=== PATIENT | male | born 1980 | race Caucasian/White ===

== ENCOUNTER 2016-07-01 14:27 | Emergency (ER) | payer MEDICAID ==
[~2016-07-01] VITALS: Ht 182.9 cm; Wt 187.7 kg
[~2016-07-01 14:27] MED LIST: ACET650S12 PR; CEPH-368 PO; GABA600T2 PO; GABA800T2 PO; LACT1CAP33 PO; LINE600T37 PO; OXYC20TA59 PO
[2016-07-01] MEDS ORDERED: GABAPENTIN 400 MG CAPSULE PO ONE (15:00)
[2016-07-01] MEDS ORDERED: DEXAMETHASONE 4 MG TABLET ONE (15:12)
[2016-07-01] MEDS ORDERED: DEXAMETHASONE 4 MG TABLET PO ONE (15:30)
[2016-07-01] MEDS ORDERED: HYDROmorphone 1 MG/ML, 1ML IM ONE (16:00)
[2016-07-01] MEDS ORDERED: HYDROmorphone 1 MG/ML, 1ML ONE (16:07)
[2016-07-01 17:02] VITALS: BP 118/74
== END 2016-07-01 17:05 | disposition home or self-care (01) ==
LOC: ED 15:09
DX: M54.16 Radiculopathy, lumbar region (principal); Z86.718 Personal history of other venous thrombosis and embolism
CPT/HCPCS: 93971; 96372; 99284; J1170

== ENCOUNTER 2017-03-20 10:32 | Emergency (ER) | payer MEDICAID ==
[~2017-03-20] VITALS: Ht 182.9 cm; Wt 182.2 kg
[~2017-03-20 10:32] MED LIST changes: +ACIDOPHILUS PROB1 MG PO; -LACT1CAP33 PO
[2017-03-20] MEDS ORDERED: SODIUM CHLORIDE FLUSH 10ML SYR IVF ONE (11:30)
[2017-03-20] MEDS ORDERED: ACETAMINOPHEN 325 MG TABLET PO ONE (11:30)
[2017-03-20] MEDS ORDERED: SODIUM CHLORIDE 0.9% 1,000ML IVBOLUS ONE (11:30)
[2017-03-20] MEDS ORDERED: ACETAMINOPHEN 325 MG TABLET ONE (11:44)
[2017-03-20 12:01] LABS: BASOPHILS # (AUTO) 0.02 x10^3/uL (0-0.1); BASOPHILS % (AUTO) 0 % (0-1); EOSINOPHILS # (AUTO) 0.01 x10^3/uL (0-0.4); EOSINOPHILS % (AUTO) 0 % (1-7); LYMPHOCYTES # (AUTO) 0.72 x10^3/uL (1-3.4); LYMPHOCYTES % (AUTO) 13 % (22-44); MD NO; MEAN CORPUSCULAR HEMOGLOBIN 27.7 pg (27.5-34.5); MEAN CORPUSCULAR HGB CONC 33.6 g/dL (33.2-36.2); MEAN CORPUSCULAR VOLUME 82.4 fL (81-97); MEAN PLATELET VOLUME 8.8 fL (7.4-10.4); MONOCYTES # (AUTO) 0.57 x10^3/uL (0.2-0.8); MONOCYTES % (AUTO) 10 % (2-9); NEUTROPHILS # (AUTO) 4.19 x10^3/uL (1.8-6.8); NEUTROPHILS % (AUTO) 76 % (42-75); PLATELET COUNT 164 x10^3/uL (130-400); RED BLOOD COUNT 5.24 x10^6/uL (4.38-5.82); RED CELL DISTRIBUTION WIDTH 16.9 % (9.4-14.8)
[2017-03-20 12:12] LABS: ALANINE AMINOTRANSFERASE 46 U/L (12-78); ANION GAP 8 mmol/L (5-15); CALCIUM 8.7 mg/dL (8.5-10.1); CHLORIDE 105 mmol/L (98-107); CREATININE 0.93 mg/dL (0.7-1.3)
[2017-03-20] MEDS ORDERED: ALBUTEROL/IPRATROPIUM 2.5MG/0.5MG, 3 ML ONE (12:12)
[2017-03-20 12:17] LABS: ALKALINE PHOSPHATASE 97 U/L (45-117); BILIRUBIN,TOTAL 0.3 mg/dL (0.2-1.0); TOTAL PROTEIN 7.7 g/dL (6.4-8.2); TROPONIN I < 0.015 ng/mL (0.000-0.045)
[2017-03-20] MEDS ORDERED: ALBUTEROL/IPRATROPIUM 2.5MG/0.5MG, 3 ML NPPB ONE (12:30)
[2017-03-20 13:28] LABS: MICROSCOPIC NOT IND
[2017-03-20 13:30] LABS: CULTURE INDICATED? NO
[2017-03-20] MEDS ORDERED: OMNIPAQUE 350 MG/ML, 150 ML BOTTLE ONE (15:09)
[2017-03-20] MEDS ORDERED: CEFTRIAXONE PMX 1GM/50ML 50 ML IVPB ONE (16:00)
[2017-03-20] MEDS ORDERED: CEFTRIAXONE PMX 1GM/50ML 50 ML ONE (16:04)
[2017-03-20 17:04] VITALS: BP 132/78
== END 2017-03-20 17:08 | disposition home or self-care (01) ==
LOC: ED 15:16
DX: J18.0 Bronchopneumonia, unspecified organism (principal)
CPT/HCPCS: 36415; 71045; 71275; 80053; 81003; 83605; 84145; 84484; 85025; 85379; 87040; 87081; 87880; 93005; 94640; 96361; 96365; 99285; J0696; J7030; Q9967; J7620

== ENCOUNTER 2017-03-29 09:33 | Inpatient (IN) | payer MEDICAID ==
[~2017-03-29] VITALS: Ht 182.9 cm; Wt 177.1 kg
[2017-03-29] MEDS ORDERED: MORPHINE SULFATE 4 MG/ML, 1ML ONE ×3 (10:26→15:58)
[2017-03-29] MEDS ORDERED: ONDANSETRON 2MG/ML, 2ML ONE (10:26)
[2017-03-29 10:28] LABS: BASOPHILS # (AUTO) 0.03 x10^3/uL (0-0.1); BASOPHILS % (AUTO) 0 % (0-1); EOSINOPHILS # (AUTO) 0.11 x10^3/uL (0-0.4); EOSINOPHILS % (AUTO) 1 % (1-7); LYMPHOCYTES # (AUTO) 2.27 x10^3/uL (1-3.4); LYMPHOCYTES % (AUTO) 29 % (22-44); MD NO; MEAN CORPUSCULAR HEMOGLOBIN 27.2 pg (27.5-34.5); MEAN CORPUSCULAR HGB CONC 32.9 g/dL (33.2-36.2); MEAN CORPUSCULAR VOLUME 82.8 fL (81-97); MEAN PLATELET VOLUME 8.2 fL (7.4-10.4); MONOCYTES # (AUTO) 0.63 x10^3/uL (0.2-0.8); MONOCYTES % (AUTO) 8 % (2-9); NEUTROPHILS # (AUTO) 4.92 x10^3/uL (1.8-6.8); NEUTROPHILS % (AUTO) 62 % (42-75); PLATELET COUNT 197 x10^3/uL (130-400); RED BLOOD COUNT 5.64 x10^6/uL (4.38-5.82); RED CELL DISTRIBUTION WIDTH 16.2 % (9.4-14.8)
[2017-03-29] MEDS ORDERED: ONDANSETRON 2MG/ML, 2ML IVPush ONE (10:30)
[2017-03-29] MEDS ORDERED: SODIUM CHLORIDE FLUSH 10ML SYR IVF ONE (10:30)
[2017-03-29 10:36] LABS: INTERNATIONAL NORMALIZED RATIO 0.96 (0.93-1.1)
[2017-03-29 10:38] LABS: ALBUMIN 4.1 g/dL (3.4-5.0); ANION GAP 7 mmol/L (5-15); CALCIUM 8.6 mg/dL (8.5-10.1); CHLORIDE 105 mmol/L (98-107)
[2017-03-29] MEDS: MORPHINE SULFATE 4 MG/ML, 1ML IVPush PRN ×2 (10:57→11:55)
[2017-03-29] MEDS ORDERED: Enoxaparin 1 mg/kg protocol SQ SCH (11:00)
[2017-03-29] MEDS ORDERED: ENOXAPARIN 100 MG/ML SQ ONE (11:00)
[2017-03-29] MEDS ORDERED: ENOXAPARIN 80 MG/0.8 ML SQ ONE (11:00)
[2017-03-29] MEDS ORDERED: SODIUM CHLORIDE FLUSH 10ML SYR IVF PRN (11:30)
[2017-03-29] MEDS ORDERED: ENOXAPARIN 80 MG/0.8 ML ONE (11:58)
[2017-03-29] MEDS ORDERED: PROMETHAZINE 25 MG/ML, 1ML IM PRN (14:00)
[2017-03-29] MEDS ORDERED: ACETAMINOPHEN 325 MG TABLET PO PRN (14:00)
[2017-03-29] MEDS ORDERED: BISACODYL 10 MG SUPP PR PRN (14:00)
[2017-03-29] MEDS ORDERED: ENALAPRILAT 1.25 MG/ML, 2ML IVPush PRN (14:00)
[2017-03-29] MEDS ORDERED: DOCUSATE 100 MG CAPSULE PO PRN (14:00)
[2017-03-29] MEDS ORDERED: ATOM40CA PO (15:41)
[2017-03-29] MEDS ORDERED: ENOXAPARIN 80 MG/0.8 ML SQ SCH ×2 (16:30)
[2017-03-29] MEDS: OXYcodone IR 5MG TABLET PO PRN (16:43)
[2017-03-29] MEDS ORDERED: morphine SULFATE 10 MG/ML, 1ML IVPush ONE (18:30)
[2017-03-29 18:54] VITALS: BP 151/74
[2017-03-29] MEDS: morphine SULFATE 10 MG/ML, 1ML IVPush PRN (23:42)
[2017-03-30 00:45] VITALS: BP 159/74
[2017-03-30] MEDS: ENOXAPARIN 100 MG/ML SQ SCH ×2 (00:51→14:44)
[2017-03-30] MEDS: ENOXAPARIN 80 MG/0.8 ML SQ SCH ×2 (00:51→14:44)
[2017-03-30] MEDS: OXYcodone IR 5MG TABLET PO PRN ×3 (00:52→17:41)
[2017-03-30] MEDS: morphine SULFATE 10 MG/ML, 1ML IVPush PRN ×2 (05:46→11:52)
[2017-03-30 05:54] LABS: PROTHROMBIN TIME 10.4 Seconds (9.6-11.5)
[2017-03-30 07:26] VITALS: BP 111/72
[2017-03-30] MEDS: ATOMOXETINE 40 MG HOMEMEDPO SCH ×2 (08:00→14:00)
[2017-03-30] MEDS: SENNA/DOCUSATE TABLET PO SCH (09:00)
[2017-03-30] MEDS: ARIPIPRAZOLE 10 MG TABLET PO SCH (09:00)
[2017-03-30] MEDS: PAROXETINE 20 MG TABLET PO SCH (09:23)
[2017-03-30] MEDS ORDERED: ALTEPLASE 10 MG in SODIUM CHLORIDE 0.9% 90 ML IV SCH (13:30)
[2017-03-30 14:00] VITALS: BP 128/81
[2017-03-30] MEDS ORDERED: LIDOCAINE 2%, 20ML ONE (15:02)
[2017-03-30] MEDS ORDERED: MIDAZOLAM 1 MG/ML, 2ML ONE ×2 (15:08→15:09)
[2017-03-30] MEDS ORDERED: FENTANYL PF 100 MCG/2ML ONE (15:08)
[2017-03-30] MEDS ORDERED: NALOXONE 1 MG/ML, 2ML ONE (15:09)
[2017-03-30] MEDS ORDERED: FLUMAZENIL 0.1 MG/1 ML, 5ML ONE (15:09)
[2017-03-30 18:11] VITALS: BP 164/107
[2017-03-30 18:48] VITALS: BP 137/99
[2017-03-30] MEDS ORDERED: ONDANSETRON ODT 4 MG PO PRN (21:30)
[2017-03-31 01:03] VITALS: BP 130/89
[2017-03-31] MEDS: OXYcodone IR 5MG TABLET PO PRN ×2 (02:33→09:00)
[2017-03-31] MEDS: ONDANSETRON ODT 4 MG PO PRN ×2 (02:33→08:01)
[2017-03-31 06:14] LABS: BASOPHILS # (AUTO) 0.02 x10^3/uL (0-0.1); BASOPHILS % (AUTO) 0 % (0-1); EOSINOPHILS # (AUTO) 0.05 x10^3/uL (0-0.4); EOSINOPHILS % (AUTO) 1 % (1-7); LYMPHOCYTES # (AUTO) 1.32 x10^3/uL (1-3.4); LYMPHOCYTES % (AUTO) 16 % (22-44); MD NO; MEAN CORPUSCULAR HEMOGLOBIN 27.6 pg (27.5-34.5); MEAN CORPUSCULAR VOLUME 83.7 fL (81-97); MONOCYTES # (AUTO) 0.63 x10^3/uL (0.2-0.8); MONOCYTES % (AUTO) 8 % (2-9); NEUTROPHILS # (AUTO) 6.01 x10^3/uL (1.8-6.8); NEUTROPHILS % (AUTO) 75 % (42-75); PLATELET COUNT 153 x10^3/uL (130-400); RED BLOOD COUNT 4.94 x10^6/uL (4.38-5.82)
[2017-03-31] MEDS: SENNA/DOCUSATE TABLET PO SCH (08:01)
[2017-03-31] MEDS: PAROXETINE 20 MG TABLET PO SCH (08:02)
[2017-03-31] MEDS: ARIPIPRAZOLE 10 MG TABLET PO SCH (08:02)
[2017-03-31 08:39] VITALS: BP 148/86
[2017-03-31 08:46] VITALS: BP 134/79
[2017-03-31] MEDS: ATOMOXETINE 40 MG HOMEMEDPO SCH ×2 (09:05→15:25)
[2017-03-31 15:00] VITALS: BP 133/86
[2017-03-31] MEDS ORDERED: RIVA15TA PO (17:35)
[2017-03-31] MEDS ORDERED: FLU VACC QS2017-18 (36MOS+) UP/PF 0.5 ML IM-VACC ONE (18:30)
== END 2017-03-31 18:56 | disposition home or self-care (01) | DRG 299 ==
LOC: ED 10:31 → EDIP 11:25 → 4WST 16:02
PROVIDERS: ADMIT Internal Medicine; ATTEND Internal Medicine
PROC: 3E04317 Introduction of Other Thrombolytic into Central Vein, Percutaneous Approach (ICD-10-PCS; principal; 2017-03-30)
PROC: 3E0234Z Introduction of Serum, Toxoid and Vaccine into Muscle, Percutaneous Approach (ICD-10-PCS; 2017-03-31)
DX: I82.412 Acute embolism and thrombosis of left femoral vein (principal); D65 Disseminated intravascular coagulation [defibrination syndrome]; D68.51 Activated protein C resistance; I82.432 Acute embolism and thrombosis of left popliteal vein; Z68.43 Body mass index [BMI] 50.0-59.9, adult; F19.20 Other psychoactive substance dependence, uncomplicated; F15.10 Other stimulant abuse, uncomplicated; Z23 Encounter for immunization; F90.9 Attention-deficit hyperactivity disorder, unspecified type; G89.29 Other chronic pain; I10 Essential (primary) hypertension; Z79.01 Long term (current) use of anticoagulants; Z86.2 Personal history of diseases of the blood and blood-forming organs and certain disorders involving the immune mechanism; Z87.891 Personal history of nicotine dependence; F32.9 Major depressive disorder, single episode, unspecified; E66.9 Obesity, unspecified
CPT/HCPCS: 36415; 37187; 76937; 80048; 82040; 85025; 85610; 85730; 90686; 93005; 96372; 96374; 99156; 99157; C1725; C1894; J1650; J2250; J2405; J2550; J2997; J3010; J3490; Q0162; C1757; C1769; J2270; J2310

== ENCOUNTER 2018-10-08 12:41 | Emergency (ER) | payer MEDICAID, OTHER ==
[~2018-10-08] VITALS: Ht 190.5 cm; Wt 159.0 kg
[2018-10-08 14:07] VITALS: BP 124/69
== END 2018-10-08 14:57 | disposition home or self-care (01) ==
LOC: ED 14:50
DX: S91.302A Unspecified open wound, left foot, initial encounter (principal); L03.116 Cellulitis of left lower limb; I10 Essential (primary) hypertension; F32.9 Major depressive disorder, single episode, unspecified; Z79.899 Other long term (current) drug therapy; X58.XXXA Exposure to other specified factors, initial encounter; Y93.89 Activity, other specified; Y92.89 Other specified places as the place of occurrence of the external cause; Y99.8 Other external cause status
CPT/HCPCS: 36415; 80048; 83605; 85025; 85610; 85651; 85730; 86140; 87040; 99284